=== PATIENT | female | born 1995 | race Caucasian/White ===

== ENCOUNTER 2017-04-10 09:29 | Emergency (ER) | payer OTHER ==
[2017-04-10 09:49] VITALS: TEMP 97.7; O2SAT 96
[2017-04-10] MEDS ORDERED: Sodium Chloride 0.9% 1,000 ML IV ONE (10:06)
[2017-04-10] MEDS ORDERED: Sodium Chloride 0.9% 1,000 ML ONE (10:13)
[2017-04-10 11:03] LABS: BASO % 0.3 % (0.0-2.0); EOS # 0.2 K/uL (0.0-0.7); EOS % 3.2 % (0.0-4.0); HEMATOCRIT 40.7 % (34.0-47.0); LYMPH # 2.7 K/uL (1.0-4.3); LYMPH % 35.9 % (20.0-40.0); MEAN CELL VOLUME 84.7 fL (81.0-99.0); MEAN CORPUSCULAR HEMOGLOBIN 29.1 pg (27.0-31.0); MEAN CORPUSCULAR HGB CONC 34.4 g/dL (33.0-37.0); MEAN PLATELET VOLUME 7.8 fL (7.2-11.7); MONO # 0.6 K/uL (0.0-0.8); MONO % 8.3 % (0.0-10.0); RED CELL DISTRIBUTION WIDTH 13.3 % (11.5-14.5); WHITE BLOOD COUNT 7.5 K/uL (4.8-10.8)
[2017-04-10 11:17] LABS: CHLORIDE 101 mmol/L (98-107); POTASSIUM 4.2 mmol/L (3.6-5.2); SODIUM 140 mmol/L (132-148)
[2017-04-10 11:19] LABS: ALB/GLOB RATIO 1.4 (1.0-2.1); ALKALINE PHOSPHATASE 51 U/L (38-126); AST/SGOT 18 U/L (14-36); BILIRUBIN,TOTAL 0.3 mg/dL (0.2-1.3); CARBON DIOXIDE 23 mmol/L (22-30); GFR AFRICAN-AMERICAN > 60; TOTAL PROTEIN 7.1 g/dL (6.3-8.3)
[2017-04-10 11:20] LABS: ALT/SGPT 25 U/L (9-52); BLOOD UREA NITROGEN 16 mg/dL (7-17); CALCIUM 9.6 mg/dl (8.6-10.4); GLUCOSE,RANDOM 77 mg/dL (65-105)
[2017-04-10 11:35] LABS: URINE BILIRUBIN NEGATIVE (NEGATIVE); URINE BLOOD NEGATIVE (NEGATIVE); URINE COLOR Yellow (YELLOW); URINE GLUCOSE (UA) NORMAL (Normal); URINE KETONE NEGATIVE (NEGATIVE); URINE LEUKOCYTE ESTERASE NEG Leu/uL (Negative); URINE PROTEIN NEGATIVE (NEGATIVE); URINE UROBILINOGEN NORMAL mg/dL (0.2-1.0)
--- NOTE | 2017-04-10 12:36 | US ---
HISTORY: left pelvic pain, poss cyst COMPARISON: None available. TECHNIQUE: Real-time transabdominal pelvic ultrasound was performed. In addition a transvaginal pelvic ultrasound was necessary to better depict pelvic anatomy. FINDINGS: UTERUS: Measures 7.5 x 3.3 x 7.1 cm. Anteverted. Bicornuate configuration. George ENDOMETRIUM: Endometrium within the right horn measures approximately 0.9 cm in diameter. Endometrium within the left horn measures approximately 1.0 cm in diameter. CERVIX: No cervical abnormality identified. RIGHT OVARY: Measures 3.1 x 2.0 x 4.0 cm. Blood flow is demonstrated. LEFT OVARY: Measures 4.5 x 2.3 x 3.4 cm. Blood flow is demonstrated. FREE FLUID: No significant free fluid noted. OTHER FINDINGS: None. IMPRESSION: Bicornuate uterus. Otherwise unremarkable pelvic ultrasound as above.
--- NOTE | 2017-04-10 12:53 | C.PDOC ---
History Of Present Illness 21 year old female presents to the ED for evaluation of left lower quadrant abdominal pain which began around 1 week ago. Patient state she saw her PMD 4 days ago and was advised to report to the ED for an evaluation. 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 Patient notes her pain occurs intermittently and progresses to suprapubic region after sexual intercourse. Patient admits she is sexually active with protection and denies any possibility of STD contraction. She reports her last menstrual period was 03/09; patient recently took a test which produced negative results. She denies dysuria, vaginal discharge, vaginal bleeding, and back pain. PMD: Dr. Gutierrez Time Seen by Provider: 04/10/17 10:05 Chief Complaint (Nursing): Abdominal Pain History Per: Patient History/Exam Limitations: no limitations Onset/Duration Of Symptoms: Days (1 week ) Current Symptoms Are (Timing): Still Present Location Of Pain/Discomfort: LLQ, Suprapubic (status post sexual activity ) Radiation Of Pain To:: None Quality Of Discomfort: "Pain" Associated Symptoms: denies: Back Pain, Urinary Symptoms Additional History Per: Patient Abnormal Vaginal Bleeding: No Last Menstral Period: 03/09/17 Past Medical History Reviewed: Historical Data, Nursing Documentation, Vital Signs Vital Signs: Last Vital Signs Temp 97.7 F 04/10/17 09:48 Pulse 70 04/10/17 13:20 Resp 20 04/10/17 13:20 BP 112/68 04/10/17 13:20 Pulse Ox 96 04/10/17 13:07 - Medical History PMH: No Chronic Diseases Surgical History: No Surg Hx Family History: States: Unknown Family Hx - Social History Hx Alcohol Use: No Hx Substance Use: No - Immunization History Hx Tetanus Toxoid Vaccination: No Hx Influenza Vaccination: No Hx Pneumococcal Vaccination: No Review Of Systems Gastrointestinal: Positive for: Abdominal Pain (left lower quadrant; progression to suprapubic region after sexual intercourse ) Genitourinary: Negative for: Dysuria, Vaginal Discharge, Vaginal Bleeding Musculoskeletal: Negative for: Back Pain Physical Exam - Physical Exam Appears: Non-toxic, No Acute Distress Skin: Normal Color, Warm, Dry Head: Atraumatic, Normacephalic Eye(s): bilateral: Normal Inspection Oral Mucosa: Moist Neck: Supple Chest: Symmetrical, No Deformity Cardiovascular: Rhythm Regular, No Murmur Respiratory: Normal Breath Sounds, No Rales, No Rhonchi, No Wheezing Gastrointestinal/Abdominal: Soft, Tenderness (left lower quadrant ), No Guarding , No Rebound Back: Normal Inspection, No Vertebral Tenderness, No Paraspinal Tenderness Extremity: Normal ROM, Capillary Refill (less than 2 seconds ) Neurological/Psych: Oriented x3, Normal Speech, Normal Cognition Gait: Steady ED Course And Treatment - Laboratory Results Result Diagrams: 04/10/17 10:58 04/10/17 10:58 O2 Sat by Pulse Oximetry: 96 (on RA) Pulse Ox Interpretation: Normal - Other Rad Abdomen/Pelvis/Transvaginal US X-Ray: Interpreted by Me, Viewed By Me, Read By Radiologist Interpretation: HISTORY: left pelvic pain, poss cyst. COMPARISON: None available. TECHNIQUE: Real-time transabdominal pelvic ultrasound was performed. In addition a transvaginal pelvic ultrasound was necessary to better depict pelvic anatomy. FINDINGS: UTERUS: Measures 7.5 x 3.3 x 7.1 cm. Anteverted. Bicornuate configuration. George. ENDOMETRIUM: Endometrium within the right horn measures approximately 0.9 cm in diameter. Endometrium within the left horn measures approximately 1.0 cm in diameter. CERVIX: No cervical abnormality identified. RIGHT OVARY: Measures 3.1 x 2.0 x 4.0 cm. Blood flow is demonstrated. LEFT OVARY: Measures 4.5 x 2.3 x 3.4 cm. Blood flow is demonstrated. FREE FLUID: No significant free fluid noted. OTHER FINDINGS: None. IMPRESSION: Bicornuate uterus. Otherwise unremarkable pelvic ultrasound as above. Medical Decision Making Medical Decision Making: Impression: 21 year old female with left lower quadrant abdominal pain Plan: * labs * abdomen/pelvis/transvaginal US * IV fluids * reassess and disposition Progress: labs and US ordered and reviewed. Patient received IV Fluids. Pelvic exam performed showing thin white vaginal discharge, no CMT, no adnexal tenderness. Cultures obtained and sent to lab. Patient remained afebrile and in no distress, abdomen soft and no peritoneal signs. Disposition Counseled Patient/Family Regarding: Studies Performed, Diagnosis, Need For Followup, Rx Given - Disposition Referrals: [facility] [Outside] [facility] [Outside] Disposition: HOME/ ROUTINE Disposition Time: 13:20 Condition: GOOD Additional Instructions: Your labs and US were normal Please use vaginal applicator nightly for 5 days Follow up with the echocardiography tech or clinic Prescriptions: Metronidazole [Metrogel-Vaginal] 1 ea VG HS #1 gel Instructions: Bacterial Vaginosis (ED) Forms: [employer] (Mongolian) - POA Present On Arrival: None - Clinical Impression Clinical Impression: Pelvic pain, Vaginitis - PA / SYS DIR / Resident Statement MD/DO has reviewed & agrees with the documentation as recorded. - Scribe Statement The provider has reviewed the documentation as recorded by the Scribe (Norma Mckinley) All medical record entries made by the Scribe were at my direction and personally dictated by me. I have reviewed the chart and agree that the record accurately reflects my personal performance of the history, physical exam, medical decision making, and the department course for this patient. I have also personally directed, reviewed, and agree with the discharge instructions and disposition.
[2017-04-10 13:21] VITALS: BP 112/68; PULSE 70; RESP 20
== END 2017-04-10 13:20 | disposition home or self-care (01) ==
LOC: C.ER 09:29
DX: N76.0 Acute vaginitis (principal); R10.2 Pelvic and perineal pain
CPT/HCPCS: 76830; 76856; 80053; 81001; 83690; 84703; 85025; 96360; 99285; J7040